=== PATIENT | male | born 1955 | race Caucasian/White ===

== ENCOUNTER 2021-07-07 11:17 | Emergency (ER) | payer BC ==
[~2021-07-07] VITALS: Ht 185.4 cm; Wt 90.0 kg
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
[2021-07-07] MEDS ORDERED: HYDROcodone/acetaminophen 10/325mg tab PO ONE (13:10)
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
[2021-07-07] MEDS ORDERED: aspirin 325mg tablet, delayed-release (Ecotrin) PO ONE (14:30)
[2021-07-07 15:05] VITALS: BP 173/115
[2021-07-07] MEDS ORDERED: HYDR-3972 PO (15:07)
--- NOTE | 2021-07-07 15:07 | NUR ---
Pt states he is worked up, and BP is usually 130s/80s.
== END 2021-07-07 15:17 | disposition home or self-care (01) ==
LOC: ER 11:18
DX: S13.4XXA Sprain of ligaments of cervical spine, initial encounter (principal); M54.2 Cervicalgia; M79.645 Pain in left finger(s); M79.671 Pain in right foot; V98.8XXA Other specified transport accidents, initial encounter; Y93.89 Activity, other specified; Y92.89 Other specified places as the place of occurrence of the external cause; Y99.8 Other external cause status
CPT/HCPCS: 72125; 99284